=== PATIENT | male | born 1950 | race Caucasian/White ===

== ENCOUNTER 2022-02-10 14:04 | Outpatient (CLI) | payer MEDICARE, OTHER ==
[~2022-02-10 14:04] MED LIST: AMIO200T67 PO; ASPI-1071 PO; ATOR40TA72 PO; DIPH25CA83 PO; FLO0.4C PO; HYDR-3972 PO; LOP12.5T PO; OXYB5TAB16 PO
[2022-02-10 14:35] LABS: BASOPHILS % (AUTO) 0.6 % (0-1); EOSINOPHILS # (AUTO) 0.1 X10'3 (0-0.9); EOSINOPHILS % (AUTO) 1.7 % (0-6); HEMOGLOBIN 8.5 g/dl (14.0-17.9); LYMPHOCYTES # (AUTO) 0.4 X10'3 (1.1-4.8); LYMPHOCYTES % (AUTO) 7.4 % (21-51); MEAN CORPUSCULAR HEMOGLOBIN 29.5 PG (27.0-31.0); MEAN CORPUSCULAR HGB CONC 34.2 g/dL (33.0-36.5); MEAN CORPUSCULAR VOLUME 86.4 FL (78-98); MEAN PLATELET VOLUME 6.9 FL (7.4-10.4); MONOCYTES # (AUTO) 0.4 X10'3 (0-0.9); NEUTROPHILS # (AUTO) 4.1 X10'3 (1.8-7.7); NEUTROPHILS % (AUTO) 81.3 % (42-75); PLATELET COUNT 315 X10'3 (140-440); RED BLOOD COUNT 2.89 X10'6 (4.70-6.10); RED CELL DISTRIBUTION WIDTH 15.2 % (11.5-14.5)
[2022-02-10 14:43] LABS: ALBUMIN 2.9 G/DL (3.4-5.0); ANION GAP 7 (8-16); BLOOD UREA NITROGEN 9 MG/DL (7-18); BUN/CREATININE RATIO 8.7 (5.4-32.0); CALCIUM 8.3 MG/DL (8.5-10.1); CHLORIDE 101 MMOL/L (99-107); CREATININE 1.03 MG/DL (0.60-1.10); GLUCOSE 114 MG/DL (70-104); POTASSIUM 3.9 MMOL/L (3.5-5.1); SODIUM 134 MMOL/L (135-145); TOTAL CARBON DIOXIDE 25.8 MMOL/L (24-32); eGFR 71 ML/MIN
== END 2022-02-10 23:59 | disposition home or self-care (01) ==
LOC: RAD 14:04
PROVIDERS: ATTEND Thoracic Surgery (Cardiothoracic Vascular Surgery)
DX: I48.92 Unspecified atrial flutter (principal); R94.31 Abnormal electrocardiogram [ECG] [EKG]; I51.7 Cardiomegaly; J90 Pleural effusion, not elsewhere classified; I48.0 Paroxysmal atrial fibrillation; M25.40 Effusion, unspecified joint; R10.9 Unspecified abdominal pain
CPT/HCPCS: 36415; 71046; 80048; 85025; 93005

== ENCOUNTER 2022-02-26 10:28 | Inpatient (IN) | payer MEDICARE, OTHER ==
[~2022-02-26] VITALS: Ht 185.4 cm; Wt 93.2 kg
[2022-02-26 11:12] LABS: BASOPHILS % (AUTO) 0.4 % (0-1); EOSINOPHILS # (AUTO) 0.1 X10'3 (0-0.9); EOSINOPHILS % (AUTO) 1.3 % (0-6); HEMATOCRIT 22.6 % (42.0-52.0); HEMOGLOBIN 7.4 g/dl (14.0-17.9); LYMPHOCYTES # (AUTO) 0.4 X10'3 (1.1-4.8); MEAN CORPUSCULAR HEMOGLOBIN 28.4 PG (27.0-31.0); MEAN CORPUSCULAR HGB CONC 32.9 g/dL (33.0-36.5); MEAN CORPUSCULAR VOLUME 86.6 FL (78-98); MONOCYTES # (AUTO) 0.4 X10'3 (0-0.9); MONOCYTES % (AUTO) 8.3 % (2-12); NEUTROPHILS # (AUTO) 4.1 X10'3 (1.8-7.7); PLATELET COUNT 231 X10'3 (140-440); RED BLOOD COUNT 2.61 X10'6 (4.70-6.10); RED CELL DISTRIBUTION WIDTH 15.7 % (11.5-14.5); WHITE BLOOD COUNT 5.1 X10'3 (4.5-11.0)
[2022-02-26 11:26] LABS: APTT 35 SECONDS (22-32)
[2022-02-26 11:29] LABS: ALANINE AMINOTRANSFERASE 27 U/L (12-78); ALBUMIN 3.2 G/DL (3.4-5.0); ALBUMIN/GLOBULIN RATIO 0.9 (1.1-1.5); ALKALINE PHOSPHATASE 128 IU/L (46-116); ANION GAP 8 (8-16); ASPARTATE AMINO TRANSFERASE 14 U/L (10-37); BILIRUBIN,TOTAL 0.4 MG/DL (0.1-1.0); BLOOD UREA NITROGEN 20 MG/DL (7-18); BUN/CREATININE RATIO 14.7 (5.4-32.0); CALCIUM 8.3 MG/DL (8.5-10.1); CHLORIDE 103 MMOL/L (99-107); CREATININE 1.36 MG/DL (0.60-1.10); GLUCOSE 100 MG/DL (70-104); POTASSIUM 4.3 MMOL/L (3.5-5.1); SODIUM 138 MMOL/L (135-145); TOTAL CARBON DIOXIDE 26.8 MMOL/L (24-32); TOTAL PROTEIN 6.8 G/DL (6.4-8.2); eGFR 51 ML/MIN
[2022-02-26] MEDS ORDERED: MAGN400T52 PO (12:32)
[2022-02-26] MEDS ORDERED: AMLO5TAB16 PO (12:32)
[2022-02-26] MEDS ORDERED: ATOR40TA72 PO (12:32)
[2022-02-26] MEDS ORDERED: METO25TA6 PO (12:32)
[2022-02-26] MEDS ORDERED: FLO0.4C PO (12:32)
[2022-02-26] MEDS ORDERED: AMIO200T61 PO (12:32)
[2022-02-26] MEDS ORDERED: APIX5TAB3 PO (12:32)
[2022-02-26 12:47] VITALS: BP 113/81
[2022-02-26 13:05] VITALS: BP 124/79
[2022-02-26] MEDS ORDERED: ondansetron/PF 4mg/2ml inj IV PRN (14:00)
[2022-02-26] MEDS ORDERED: potassium CL 10mEq/100ml bag 100 ML IV PRN (14:00)
[2022-02-26] MEDS ORDERED: acetaminophen 325mg tablet PO PRN (14:00)
[2022-02-26] MEDS ORDERED: magnesium 2GM in 50ml NS 50 ML IV PRN (14:00)
[2022-02-26] MEDS ORDERED: PERFLUTREN PROTEIN-A MICROSPHR (Optison) 0.22 MG/ML 3ML VIAL IV ONE (14:00)
[2022-02-26] MEDS ORDERED: morphine 2 MG/ML inj. syringe IV PRN (14:00)
[2022-02-26] MEDS ORDERED: magnesium Cl slow-release 64mg tablet PO PRN (14:00)
[2022-02-26] MEDS ORDERED: magnesium 4gm in 100ml NS 100 ML IV PRN (14:00)
[2022-02-26] MEDS ORDERED: potassium Cl 20 mEq SR tablet PO PRN ×2 (14:00)
[2022-02-26 14:38] VITALS: BP 123/94
[2022-02-26 15:44] LABS: MAGNESIUM 2.1 MG/DL (1.5-2.4); POTASSIUM 3.9 MMOL/L (3.5-5.1)
[2022-02-26 17:57] LABS: HEMATOCRIT 24.7 % (42.0-52.0); HEMOGLOBIN 8.3 g/dl (14.0-17.9); MEAN CORPUSCULAR HEMOGLOBIN 29.5 PG (27.0-31.0); MEAN CORPUSCULAR HGB CONC 33.8 g/dL (33.0-36.5); MEAN CORPUSCULAR VOLUME 87.3 FL (78-98); MEAN PLATELET VOLUME 7.2 FL (7.4-10.4); PLATELET COUNT 223 X10'3 (140-440); RED BLOOD COUNT 2.83 X10'6 (4.70-6.10); WHITE BLOOD COUNT 5.9 X10'3 (4.5-11.0)
--- NOTE | 2022-02-26 18:30 | NUR ---
Pt pink, alert, no acute/resp distress. Family at bedside. Bed in lowest position, wheels locked, rail 2/2 up. Pt laying supine. Pt able to reposition self prn. Will continue to monitor pt for acute changes and needs.
[2022-02-26] MEDS: K and/or MAG REPLACEMENT MC SCH (20:00)
--- NOTE | 2022-02-26 21:05 | NUR ---
Pt pink, alert, no acute/resp distress. Bed in lowest position, wheels locked, rail 2/2 up, call malik in reach. Pt laying supine, able to reposition self PRN. RT at bedside, neb in progress. PIV site c/d/i s complication or adverse. Pt eating sandwich and sugar free jello. NPO at 0000 per order list.
--- NOTE | 2022-02-26 23:33 | NUR ---
Pt pink, alert, no acute/resp distress. Bed in lowest position, wheels locked, rail 2/2 up, call malik in reach. Pt laying supine, able to reposition self PRN. RT at bedside, neb in progress. PIV site c/d/i s complication or adverse.
--- NOTE | 2022-02-26 23:49 | NUR ---
*PLEASE CALL SPOUSE* before any procedures, ie endoscopy.
--- NOTE | 2022-02-27 03:30 | NUR ---
Pt pink, alert, no acute/resp distress. Family at bedside. Bed in lowest position, wheels locked, rail 2/2 up. Pt laying right side. Pt able to reposition self prn. Will continue to monitor pt for acute changes and needs. PIV site c/d/i s complication or adverse.
--- NOTE | 2022-02-27 05:35 | NUR ---
Pt pink, alert, no acute/resp distress. Bed in lowest position, wheels locked, rail 2/2 up. Pt laying supine. Pt able to reposition self prn. Will continue to monitor pt for acute changes and needs. PIV site c/d/i s complication or adverse.
--- NOTE | 2022-02-27 06:03 | NUR ---
Pt pink, alert, no acute/resp distress. Family at bedside. Bed in lowest position, wheels locked, rail 2/2 up. Pt laying supine. Pt able to reposition self prn. PIV site c/d/i s complicaiton or s/s hematoma or infiltration. Hand off report to dayshift RN.
--- NOTE | 2022-02-27 06:48 | NUR ---
first contact with pt. semi fowlers in bed, on his laptop.
[2022-02-27] MEDS: K and/or MAG REPLACEMENT MC SCH ×2 (08:00→20:00)
[2022-02-27 10:16] LABS: BASOPHILS % (AUTO) 0.3 % (0-1); EOSINOPHILS # (AUTO) 0.1 X10'3 (0-0.9); EOSINOPHILS % (AUTO) 0.9 % (0-6); HEMATOCRIT 24.8 % (42.0-52.0); HEMOGLOBIN 8.3 g/dl (14.0-17.9); LYMPHOCYTES # (AUTO) 0.4 X10'3 (1.1-4.8); LYMPHOCYTES % (AUTO) 5.9 % (21-51); MEAN CORPUSCULAR HEMOGLOBIN 28.8 PG (27.0-31.0); MEAN CORPUSCULAR HGB CONC 33.3 g/dL (33.0-36.5); MEAN CORPUSCULAR VOLUME 86.2 FL (78-98); MEAN PLATELET VOLUME 7.3 FL (7.4-10.4); MONOCYTES # (AUTO) 0.5 X10'3 (0-0.9); MONOCYTES % (AUTO) 7.5 % (2-12); NEUTROPHILS # (AUTO) 5.4 X10'3 (1.8-7.7); NEUTROPHILS % (AUTO) 85.4 % (42-75); PLATELET COUNT 227 X10'3 (140-440); RED BLOOD COUNT 2.87 X10'6 (4.70-6.10); RED CELL DISTRIBUTION WIDTH 15.4 % (11.5-14.5); WHITE BLOOD COUNT 6.3 X10'3 (4.5-11.0)
[2022-02-27 10:37] LABS: ALBUMIN 3.1 G/DL (3.4-5.0); ANION GAP 9 (8-16); BLOOD UREA NITROGEN 17 MG/DL (7-18); BUN/CREATININE RATIO 13.5 (5.4-32.0); CALCIUM 8.3 MG/DL (8.5-10.1); CHLORIDE 103 MMOL/L (99-107); CREATININE 1.26 MG/DL (0.60-1.10); GLUCOSE 100 MG/DL (70-104); MAGNESIUM 2.2 MG/DL (1.5-2.4); SODIUM 137 MMOL/L (135-145); TOTAL CARBON DIOXIDE 25.3 MMOL/L (24-32); eGFR 56 ML/MIN
--- NOTE | 2022-02-27 15:48 | NUR ---
patient arrived on floor
[2022-02-27 15:49] VITALS: BP 129/84
[2022-02-27 18:00] VITALS: BP 121/68
[2022-02-27 22:00] VITALS: BP 99/68
[2022-02-28 02:00] VITALS: BP 105/65
--- NOTE | 2022-02-28 06:15 | NUR ---
Patient in room PCU 3025. I have received report from Dean and had the opportunity to ask questions and assume patient care.
[2022-02-28 07:00] VITALS: BP 115/64
[2022-02-28 07:39] LABS: BASOPHILS % (AUTO) 0.4 % (0-1); EOSINOPHILS # (AUTO) 0.1 X10'3 (0-0.9); EOSINOPHILS % (AUTO) 1.5 % (0-6); HEMATOCRIT 23.4 % (42.0-52.0); HEMOGLOBIN 7.9 g/dl (14.0-17.9); LYMPHOCYTES # (AUTO) 0.4 X10'3 (1.1-4.8); LYMPHOCYTES % (AUTO) 6.5 % (21-51); MEAN CORPUSCULAR HEMOGLOBIN 29.3 PG (27.0-31.0); MEAN CORPUSCULAR HGB CONC 33.8 g/dL (33.0-36.5); MEAN CORPUSCULAR VOLUME 86.6 FL (78-98); MONOCYTES # (AUTO) 0.4 X10'3 (0-0.9); MONOCYTES % (AUTO) 6.6 % (2-12); NEUTROPHILS # (AUTO) 5.2 X10'3 (1.8-7.7); PLATELET COUNT 213 X10'3 (140-440); RED CELL DISTRIBUTION WIDTH 15.7 % (11.5-14.5); WHITE BLOOD COUNT 6.1 X10'3 (4.5-11.0)
[2022-02-28 07:54] LABS: ALBUMIN 2.7 G/DL (3.4-5.0); ANION GAP 13 (8-16); BLOOD UREA NITROGEN 15 MG/DL (7-18); BUN/CREATININE RATIO 13.8 (5.4-32.0); CALCIUM 8.4 MG/DL (8.5-10.1); CHLORIDE 105 MMOL/L (99-107); CREATININE 1.09 MG/DL (0.60-1.10); GLUCOSE 81 MG/DL (70-104); MAGNESIUM 2.1 MG/DL (1.5-2.4); POTASSIUM 3.8 MMOL/L (3.5-5.1); SODIUM 139 MMOL/L (135-145); TOTAL CARBON DIOXIDE 21.3 MMOL/L (24-32); eGFR 66 ML/MIN
[2022-02-28] MEDS: K and/or MAG REPLACEMENT MC SCH ×2 (08:00→20:00)
[2022-02-28 11:00] VITALS: BP 99/72
--- NOTE | 2022-02-28 11:42 | NUR ---
Page Sent promotional table spacer PAGER ID: [phone] MESSAGE: [id number]. Hein. CEDILLO pt just had BM, and pt reported that it is tarry. Trip BANGURA
--- NOTE | 2022-02-28 14:06 | NUR ---
Page Sent promotional table spacer PAGER ID: [phone] MESSAGE: [id number] Silvia. Pt NPO, was wondering if he is suppose to have a colonoscopy today, or if he could eat. Trip BANGURA
[2022-02-28 15:00] VITALS: BP 141/84
--- NOTE | 2022-02-28 18:29 | NUR ---
Problems reprioritized. Patient report given, questions answered & plan of care reviewed with David.
[2022-02-28 18:45] VITALS: BP 123/82
[2022-02-28 19:17] LABS: HEMATOCRIT 23.5 % (42.0-52.0); HEMOGLOBIN 7.9 g/dl (14.0-17.9); MEAN CORPUSCULAR HEMOGLOBIN 29.3 PG (27.0-31.0); MEAN CORPUSCULAR HGB CONC 33.8 g/dL (33.0-36.5); PLATELET COUNT 242 X10'3 (140-440); RED CELL DISTRIBUTION WIDTH 15.3 % (11.5-14.5); WHITE BLOOD COUNT 7.5 X10'3 (4.5-11.0)
[2022-02-28] MEDS: amLODIPine 5mg tablet PO SCH (20:59)
[2022-02-28 22:00] VITALS: BP 105/69
[2022-03-01 02:00] VITALS: BP 95/65
--- NOTE | 2022-03-01 06:14 | NUR ---
Problems reprioritized. Patient report given, questions answered & plan of care reviewed with Trip DELATORRE.
--- NOTE | 2022-03-01 06:20 | NUR ---
Patient in room PCU 3025. I have received report from David and had the opportunity to ask questions and assume patient care.
--- NOTE | 2022-03-01 06:30 | NUR ---
called. Order Pt NPO now till Hbg results and Dr. Johnny cowan
[2022-03-01 06:48] LABS: ALBUMIN 2.7 G/DL (3.4-5.0); ANION GAP 11 (8-16); BLOOD UREA NITROGEN 13 MG/DL (7-18); BUN/CREATININE RATIO 10.9 (5.4-32.0); CHLORIDE 103 MMOL/L (99-107); CREATININE 1.19 MG/DL (0.60-1.10); GLUCOSE 92 MG/DL (70-104); MAGNESIUM 2.3 MG/DL (1.5-2.4); POTASSIUM 3.6 MMOL/L (3.5-5.1); SODIUM 138 MMOL/L (135-145); TOTAL CARBON DIOXIDE 24.1 MMOL/L (24-32); eGFR 60 ML/MIN
[2022-03-01 06:54] LABS: BASOPHILS % (AUTO) 0.2 % (0-1); EOSINOPHILS # (AUTO) 0.1 X10'3 (0-0.9); EOSINOPHILS % (AUTO) 1.3 % (0-6); HEMATOCRIT 22.8 % (42.0-52.0); HEMOGLOBIN 7.9 g/dl (14.0-17.9); LYMPHOCYTES # (AUTO) 0.4 X10'3 (1.1-4.8); LYMPHOCYTES % (AUTO) 5.1 % (21-51); MEAN CORPUSCULAR HEMOGLOBIN 29.8 PG (27.0-31.0); MEAN CORPUSCULAR HGB CONC 34.5 g/dL (33.0-36.5); MEAN CORPUSCULAR VOLUME 86.2 FL (78-98); MEAN PLATELET VOLUME 7.2 FL (7.4-10.4); MONOCYTES # (AUTO) 0.6 X10'3 (0-0.9); MONOCYTES % (AUTO) 8.1 % (2-12); NEUTROPHILS % (AUTO) 85.3 % (42-75); PLATELET COUNT 232 X10'3 (140-440); RED BLOOD COUNT 2.64 X10'6 (4.70-6.10); RED CELL DISTRIBUTION WIDTH 15.8 % (11.5-14.5); WHITE BLOOD COUNT 7.1 X10'3 (4.5-11.0)
[2022-03-01 07:00] VITALS: BP 107/62
--- NOTE | 2022-03-01 07:00 | NUR ---
Dr. Reynolds at bedside. States he wants CBC in am and a type and screen. RN informed Dr. Reynolds that Dr. Turner was planning on discharging patient today. Stated that he would like Dr. Turner to contact him about plan of care.
[2022-03-01] MEDS: K and/or MAG REPLACEMENT MC SCH ×2 (07:43→19:11)
[2022-03-01] MEDS: atorvastatin 20mg tablet PO SCH (07:45)
[2022-03-01] MEDS: metoprolol tartrate 12.5mg (1/2 tablet) PO SCH ×2 (07:46→19:55)
[2022-03-01] MEDS: amiodarone 200mg tablet PO SCH ×2 (07:46→19:54)
[2022-03-01] MEDS: magnesium oxide 400mg tablet PO SCH ×2 (07:46→19:54)
[2022-03-01] MEDS: amLODIPine 5mg tablet PO SCH (07:46)
[2022-03-01] MEDS: tamsulosin 0.4mg capsule PO SCH ×2 (07:47→19:54)
[2022-03-01 11:00] VITALS: BP 90/54
--- NOTE | 2022-03-01 11:59 | NUR ---
Page Sent promotional table spacer PAGER ID: [phone] MESSAGE: [id number]. Silvia. Per note, it says to d/c tomorrow and restart Eliquis today. But I also have d/c order for today and stop Eliquis until calling cardio in am. Which plan? Trip BANGURA
[2022-03-01] MEDS: apixaban 2.5mg tablet PO SCH ×2 (12:29→19:55)
[2022-03-01 15:00] VITALS: BP 95/67
[2022-03-01 18:00] VITALS: BP 121/72
[2022-03-01 22:00] VITALS: BP 91/70
[2022-03-02 02:00] VITALS: BP 117/71
[2022-03-02 06:00] VITALS: BP 92/65
[2022-03-02 06:59] LABS: ALBUMIN 2.8 G/DL (3.4-5.0); ANION GAP 8 (8-16); BLOOD UREA NITROGEN 13 MG/DL (7-18); BUN/CREATININE RATIO 10.6 (5.4-32.0); CALCIUM 7.9 MG/DL (8.5-10.1); CHLORIDE 104 MMOL/L (99-107); CREATININE 1.23 MG/DL (0.60-1.10); GLUCOSE 94 MG/DL (70-104); MAGNESIUM 2.2 MG/DL (1.5-2.4); POTASSIUM 3.5 MMOL/L (3.5-5.1); SODIUM 138 MMOL/L (135-145); TOTAL CARBON DIOXIDE 25.6 MMOL/L (24-32); eGFR 58 ML/MIN
[2022-03-02 07:01] LABS: BASOPHILS % (AUTO) 0.4 % (0-1); EOSINOPHILS # (AUTO) 0.1 X10'3 (0-0.9); EOSINOPHILS % (AUTO) 1.7 % (0-6); HEMOGLOBIN 7.4 g/dl (14.0-17.9); LYMPHOCYTES # (AUTO) 0.5 X10'3 (1.1-4.8); LYMPHOCYTES % (AUTO) 9.5 % (21-51); MEAN CORPUSCULAR HEMOGLOBIN 29.7 PG (27.0-31.0); MEAN CORPUSCULAR HGB CONC 34.5 g/dL (33.0-36.5); MEAN PLATELET VOLUME 7.6 FL (7.4-10.4); MONOCYTES # (AUTO) 0.5 X10'3 (0-0.9); MONOCYTES % (AUTO) 9.2 % (2-12); NEUTROPHILS # (AUTO) 4.2 X10'3 (1.8-7.7); NEUTROPHILS % (AUTO) 79.2 % (42-75); PLATELET COUNT 204 X10'3 (140-440); RED BLOOD COUNT 2.49 X10'6 (4.70-6.10); RED CELL DISTRIBUTION WIDTH 16.1 % (11.5-14.5); WHITE BLOOD COUNT 5.3 X10'3 (4.5-11.0)
[2022-03-02 07:06] LABS: HEMATOCRIT 21.4 % (42.0-52.0)
--- NOTE | 2022-03-02 07:12 | NUR ---
Paged MD Velasquez to notify of critical h&h at this time
[2022-03-02] MEDS: magnesium oxide 400mg tablet PO SCH (07:51)
[2022-03-02] MEDS: tamsulosin 0.4mg capsule PO SCH (07:52)
[2022-03-02] MEDS: amLODIPine 5mg tablet PO SCH (07:52)
[2022-03-02] MEDS: apixaban 2.5mg tablet PO SCH (07:52)
[2022-03-02] MEDS: amiodarone 200mg tablet PO SCH (07:52)
[2022-03-02] MEDS: atorvastatin 20mg tablet PO SCH (07:52)
[2022-03-02] MEDS: metoprolol tartrate 12.5mg (1/2 tablet) PO SCH (07:53)
[2022-03-02] MEDS: K and/or MAG REPLACEMENT MC SCH (07:54)
[2022-03-02 10:00] VITALS: BP 102/65
--- NOTE | 2022-03-02 12:46 | NUR ---
Initial: Pt admitted w/ SOB secondary to anemia and GIB per EMR. On clear liquid diet 02/28 and advanced to Heart healthy 03/01. Pt has been eating 100% since having active diet. LBM 03/01. No nutrition intervention implemented at this time, will continue to monitor and make recommendations as appropriate. Recs: 1. Continue Heart healthy diet as tolerated 2. Bowel care per MD 3. Scaled wts this admit Addendum: 03/02/22 at [address] Amended: Links added.
[2022-03-02 13:45] LABS: HEMATOCRIT 22.4 % (42.0-52.0); HEMOGLOBIN 7.4 g/dl (14.0-17.9); MEAN CORPUSCULAR HEMOGLOBIN 28.6 PG (27.0-31.0); MEAN CORPUSCULAR VOLUME 86.6 FL (78-98); MEAN PLATELET VOLUME 7.1 FL (7.4-10.4); PLATELET COUNT 207 X10'3 (140-440); RED BLOOD COUNT 2.58 X10'6 (4.70-6.10); RED CELL DISTRIBUTION WIDTH 16.1 % (11.5-14.5)
[2022-03-02] MEDS ORDERED: APIX2.5T PO (14:13)
[2022-03-02] MEDS ORDERED: potassium Cl 20 mEq SR tablet PO SCH (17:30)
== END 2022-03-02 15:05 | disposition home or self-care (01) | DRG 378 ==
LOC: ER 10:28 → ED HOLD 14:02 → PCU 3S 02-27 15:47
PROVIDERS: ADMIT Internal Medicine; ATTEND Internal Medicine
PROC: 30233N1 Transfusion of Nonautologous Red Blood Cells into Peripheral Vein, Percutaneous Approach (ICD-10-PCS; principal; 2022-02-26)
PROC: 0W3P8ZZ Control Bleeding in Gastrointestinal Tract, Via Natural or Artificial Opening Endoscopic (ICD-10-PCS; 2022-02-28)
DX: K92.2 Gastrointestinal hemorrhage, unspecified (principal); I48.20 Chronic atrial fibrillation, unspecified; J90 Pleural effusion, not elsewhere classified; I25.10 Atherosclerotic heart disease of native coronary artery without angina pectoris; I10 Essential (primary) hypertension; D64.9 Anemia, unspecified; E78.5 Hyperlipidemia, unspecified; R60.0 Localized edema; I73.9 Peripheral vascular disease, unspecified; N40.0 Benign prostatic hyperplasia without lower urinary tract symptoms; Z79.01 Long term (current) use of anticoagulants; Z85.46 Personal history of malignant neoplasm of prostate; Z92.3 Personal history of irradiation; Z95.1 Presence of aortocoronary bypass graft; Z79.899 Other long term (current) drug therapy
CPT/HCPCS: 36415; 36430; 71045; 80048; 80053; 83735; 84132; 85025; 85027; 85610; 85730; 86885; 86900; 86901; 86920; 87081; 93005; 93306; 97110; 97161; 99285; G0378; P9016

== ENCOUNTER 2022-03-04 11:14 | Outpatient (CLI) | payer MEDICARE, OTHER ==
[~2022-03-04 11:14] MED LIST changes: +AMIO200T61 PO; -AMIO200T67 PO; +AMLO5TAB16 PO; +APIX2.5T PO; -ASPI-1071 PO; -DIPH25CA83 PO; -HYDR-3972 PO; -LOP12.5T PO; +MAGN400T52 PO; +METO25TA6 PO; -OXYB5TAB16 PO
== END 2022-03-04 23:59 | disposition home or self-care (01) ==
LOC: RAD 11:14
PROVIDERS: ATTEND Internal Medicine
DX: R94.2 Abnormal results of pulmonary function studies (principal); R00.0 Tachycardia, unspecified; I48.91 Unspecified atrial fibrillation
CPT/HCPCS: 93005

== ENCOUNTER 2022-06-02 07:50 | Day surgery (SDC) | payer MEDICARE, OTHER ==
[~2022-06-02] VITALS: Ht 182.9 cm; Wt 90.9 kg
[2022-06-02 08:00] VITALS: BP 140/70
[2022-06-02] MEDS ORDERED: ATOR10TA70 PO (08:07)
[2022-06-02] MEDS ORDERED: APIX5TAB3 PO (08:08)
[2022-06-02] MEDS ORDERED: FURO80TA3 PO (08:09)
[2022-06-02] MEDS ORDERED: PRED10TA23 PO (08:10)
[2022-06-02] MEDS ORDERED: POTA-82 PO (08:10)
[2022-06-02] MEDS ORDERED: ASPI-611 PO (08:11)
[2022-06-02] MEDS ORDERED: DIPH50CA39 PO (08:11)
[2022-06-02] MEDS ORDERED: IRON45TA7 PO (08:12)
[2022-06-02] MEDS ORDERED: FERR325T35 PO (08:13)
[2022-06-02] MEDS ORDERED: MULT-1085 PO (08:14)
[2022-06-02] MEDS ORDERED: OMEG-79 PO (08:14)
[2022-06-02] MEDS ORDERED: DOCU-21 PO (08:15)
[2022-06-02] MEDS ORDERED: VITA-268 PO (08:15)
[2022-06-02] MEDS ORDERED: ASCO-294 PO (08:16)
[2022-06-02] MEDS ORDERED: CHOL10008 PO (08:17)
[2022-06-02] MEDS ORDERED: VITA400T10 PO (08:19)
[2022-06-02] MEDS ORDERED: MIDAZolam 1 MG/ML 5ML VIAL ONE (08:48)
[2022-06-02] MEDS ORDERED: fentaNYL/PF 50MCG/1 ML 2ML syringe ONE (08:48)
[2022-06-02] MEDS ORDERED: diphenhydrAMINE 50 mg/ml inj ONE (08:48)
[2022-06-02 09:26] VITALS: BP 140/78
[2022-06-02 09:36] VITALS: BP 133/66
[2022-06-02 09:46] VITALS: BP 131/69
[2022-06-02 09:56] VITALS: BP 142/72
== END 2022-06-02 10:00 | disposition home or self-care (01) ==
LOC: GI LAB 07:50
PROVIDERS: ATTEND Internal Medicine Gastroenterology
DX: K92.1 Melena (principal); K55.20 Angiodysplasia of colon without hemorrhage; K63.3 Ulcer of intestine
CPT/HCPCS: 45380; 45382; 99153; G0500; J1200; J2250; J3010; J7030; Z7512; 45388; 88305; 99152; A4620

== ENCOUNTER 2022-07-24 09:23 | Outpatient (CLI) | payer MEDICARE, OTHER ==
[~2022-07-24 09:23] MED LIST changes: -APIX2.5T PO; +APIX5TAB3 PO; +ASCO-294 PO; +ASPI-611 PO; +ATOR10TA70 PO; -ATOR40TA72 PO; +CHOL10008 PO; +DIPH50CA39 PO; +DOCU-21 PO; +FERR325T35 PO; +FURO80TA3 PO; +IRON45TA7 PO; -MAGN400T52 PO; +MULT-1085 PO; +OMEG-79 PO; +POTA-82 PO; +PRED10TA23 PO; +VITA-268 PO; +VITA400T10 PO
[2022-07-24] MEDS ORDERED: iohexol 350MG/ML 100ml bottle IV ONE (09:34)
== END 2022-07-24 23:59 | disposition home or self-care (01) ==
LOC: RAD 09:23
PROVIDERS: ATTEND Internal Medicine Cardiovascular Disease
DX: I27.21 Secondary pulmonary arterial hypertension (principal); I48.91 Unspecified atrial fibrillation
CPT/HCPCS: 75574; J3490; Q9967

== ENCOUNTER 2022-09-14 08:34 | Outpatient (CLI) | payer MEDICARE, OTHER ==
[2022-09-14 09:26] LABS: ALBUMIN 3.8 G/DL (3.4-5.0); ANION GAP 7 (8-16); BLOOD UREA NITROGEN 18 MG/DL (7-18); BUN/CREATININE RATIO 13.6 (5.4-32.0); CALCIUM 9.2 MG/DL (8.5-10.1); CHLORIDE 101 MMOL/L (99-107); CREATININE 1.32 MG/DL (0.60-1.10); GLUCOSE 121 MG/DL (70-104); POTASSIUM 3.3 MMOL/L (3.5-5.1); SODIUM 139 MMOL/L (135-145); TOTAL CARBON DIOXIDE 31.2 MMOL/L (24-32); eGFR 53 ML/MIN
[2022-09-14] MEDS ORDERED: IODIXANOL 320 MG/ML INFUS..BTL 100ML IV ONE ×2 (09:54→10:27)
== END 2022-09-14 23:59 | disposition home or self-care (01) ==
LOC: RAD 08:34
PROVIDERS: ATTEND Nurse Practitioner Family
DX: I70.0 Atherosclerosis of aorta (principal); J43.9 Emphysema, unspecified; I48.91 Unspecified atrial fibrillation; Z95.1 Presence of aortocoronary bypass graft; Z95.818 Presence of other cardiac implants and grafts
CPT/HCPCS: 36415; 75574; 80048; J3490; Q9967